=== PATIENT | female | born 1990 | race Caucasian/White ===

== ENCOUNTER 2025-09-13 11:10 | Emergency (ER) | payer OTHER, SELFPAY ==
[2025-09-13 11:18] VITALS: BP 149/106
--- NOTE | 2025-09-13 12:27 | ED.GENMED ---
History of Present Illness
General
Chief Complaint: Exposure-Chemical
Source: patient
Exam Limitations: none
Time Seen by Provider: 09/13/25 12:20
Nursing documentation reviewed up to this point in time: agreed with
History of Present Illness
History of Present Illness:
35 female right forearm burning after she was exposed industrial bleach at her job, she washed it for 10 minutes with cold water now feeling better she was not entrapped inside any close space no inhalation injury no shortness of breath
Past History
Past History
ED Past Medical History: None
Social History
Tobacco: Non-smoker
Alcohol: None
Drug: None
Living: with family
Employment: Employed
Review of Systems
Review of Systems
All Other Systems: Not applicable
Constitutional: Reports no symptoms
EENT: Reports no symptoms
Respiratory: Reports no symptoms; Denies cough or trouble breathing
Skin: Reports other (Minimal burning head or skin)
Hematologic/Lymphatic: Reports no symptoms
Phy Exam
Physical Exam
Physical Exam:
Physical Exam
General: no apparent distress, not acutely ill
Neck: No stridor drooling
Heart: Regular
Lungs: no acute respiratory distress.
Neuro: alert and oriented. no focal neurological deficits
Skin: no rash
Psychiatric: well kept. interactive and cooperative
Extremities: Minimal redness medial surface of the right forearm
Course
Vital Signs
Initial and Last Documented VS:
Initial Vital Signs
Temp Pulse Resp BP Pulse Ox
98.3 F 77 18 149/106 98
09/13/25 11:18 09/13/25 11:18 09/13/25 11:18 09/13/25 11:18 09/13/25 11:18
Last Documented Vital Signs
Temp Pulse Resp BP Pulse Ox
98.3 F 77 18 149/106 98
09/13/25 11:18 09/13/25 11:18 09/13/25 11:18 09/13/25 11:18 09/13/25 12:31
MDM/Problems Addressed
Differential Diagnosis Includes:
Chemical irritation chemical burn occupational exposure no elation injury
MDM/Problems Addressed:
Right forearm exposed to bleach
*Pulse Oximetry
SaO2: 98
Oxygen Mode of Delivery: Room air
Patient hypoxic: no
*Critical Care Note
Total Time (30-74mins, 75-104mins- exclusive of procedures): Not Applicable
Update Note
Update Note:
Update patient fairly asymptomatic after rinsing it at her job no ocular exposure no inhalation will suggest her using antibiotic ointment
ED Attending Note
-
Portions of this chart may have been created with voice recognition software.� Occasional wrong word or��sound alike� substitutions may have occurred due to the inherent limitations of voice recognition software.
Discharge Plan
Departure
Patient Disposition: Home (Routine Discharge)
Date of Disposition: 09/13/25
Time of Disposition: 12:30
Patient with high blood pressure during this ER visit?: No
Condition: Good
Discharge Problem:
Chemical burn
Instructions: Chemical Exposure to the Skin (DC)
Prescriptions:
No Action
dextroamphetamine-amphetamine [Adderall XR] 20 mg Capsule,Extended Release 24hr
20 mg PO DAILY
bupropion HCl [Wellbutrin XL] 150 mg Tablet Extended Release 24 Hr
150 mg PO DAILY
Control
1 tab PO DAILY
mag citrate-potassium citrate
1 dose PO .ONCE
Activity Restrictions/Additional Instructions:
Use Neosporin or similar antibiotic ointment
Interventions
Interventions:
*Risk Screen - Suicide Last Done: 09/13/25 11:18
*General Assessment Last Done: 09/13/25 11:18
*Neglect/Abuse Screening Last Done: 09/13/25 11:18
*ED COVID-19 Vaccine History Last Done: 09/13/25 11:18
*ED Influenza Vaccine History Last Done: 09/13/25 11:18
*Nursing Disposition Last Done: 09/13/25 12:57
ED- Pulmonary Assessment Last Done: 09/13/25 11:55
ED-Skin Assessment Last Done: 09/13/25 11:55
Discharge Date and Time
Discharge Date/Time: 09/13/25 12:57
Print Language: GERMAN
== END 2025-09-13 12:57 | disposition home or self-care (01) ==
LOC: EMR 11:10
PROVIDERS: EMERGENCY PHYSICIAN Emergency Medicine; FAMILY PHYSICIAN Family Medicine
DX: T54.3X1A Toxic effect of corrosive alkalis and alkali-like substances, accidental (unintentional), initial encounter (principal); T22.411A Corrosion of unspecified degree of right forearm, initial encounter; Y99.0 Civilian activity done for income or pay
CPT/HCPCS: 99282